=== PATIENT | male | born 1975 | race Caucasian/White ===

== ENCOUNTER 2017-09-19 12:19 | Emergency (ER) | payer OTHER ==
--- NOTE | 2017-09-19 13:34 | ER Document Report ---
ED General - General Mode of Arrival: Ambulatory Information source: Patient TRAVEL OUTSIDE OF THE [place] IN LAST 30 DAYS: No <ELIO COLON - Last Filed: 09/19/17 20:40> <BRETT OSULLIVAN - Last Filed: 09/20/17 23:10> - General Chief Complaint: Psych Problem Stated Complaint: DRUG CONCERN Time Seen by Provider: 09/19/17 13:01 Notes: Patient is a 42 year old male presenting to the emergency department complaining of visual and auditory hallucinations onset yesterday. Patient states he was at a bus stop when he took a cigarette from a stranger. Patient states when he got home he started to have visual and auditory hallucinations of pictures on the wall moving and talking as well as demons appearing. Patient also complains of a sore throat and some lower extremity pain. Patient denies vomiting, dysuria or hematuria, chest pain, SI, abdominal pain or rashes. (ELIO COLON) - Related Data Allergies/Adverse Reactions: No Known Allergies Allergy (Verified 09/19/17 12:23) Past Medical History - General Information source: Patient - Social History Smoking Status: Current Some Day Smoker Chew tobacco use (# tins/day): No Frequency of alcohol use: Social Drug Abuse: None Family History: Reviewed & Not Pertinent Patient has suicidal ideation: No Patient has homicidal ideation: No - Past Medical History Cardiac Medical History: Reports: Hx Atrial Fibrillation, Hx Hypertension Renal/ Medical History: Reports: Hx Peritoneal Dialysis <ELIO COLON - Last Filed: 09/19/17 20:40> Review of Systems - Review of Systems Constitutional: No symptoms reported EENT: No symptoms reported Cardiovascular: No symptoms reported Respiratory: No symptoms reported Gastrointestinal: No symptoms reported Genitourinary: No symptoms reported Male Genitourinary: No symptoms reported Musculoskeletal: See HPI Skin: No symptoms reported Hematologic/Lymphatic: No symptoms reported Neurological/Psychological: See HPI, Hallucinations -: Yes All other systems reviewed and negative <ELIO COLON - Last Filed: 09/19/17 20:40> Physical Exam <ELIO COLON - Last Filed: 09/19/17 20:40> <BRETT OSULLIVAN - Last Filed: 09/20/17 23:10> - Vital signs Vitals: Temp Pulse Resp BP Pulse Ox 99.0 F 93 18 126/80 H 96 09/19/17 12:25 09/19/17 12:25 09/19/17 12:25 09/19/17 12:25 09/19/17 12:25 - Notes Notes: GENERAL: Alert, interacts well. No acute distress. HEAD: Normocephalic, atraumatic. EYES: Pupils equal, round, and reactive to light. Extraocular movements intact. ENT: Oral mucosa moist, tongue midline. NECK: Full range of motion. Supple. Trachea midline. LUNGS: Clear to auscultation bilaterally, no wheezes, rales, or rhonchi. No respiratory distress. HEART: Regular rate and rhythm. No murmurs, gallops, or rubs. EXTREMITIES: Moves all 4 extremities spontaneously. NEUROLOGICAL: Alert and oriented x3. Normal speech. PSYCH: Normal affect, normal mood. SKIN: Warm, dry, normal turgor. No rashes or lesions noted. (ELIO COLON) Course - Laboratory Result Diagrams: 09/19/17 13:49 09/19/17 13:49 <ELIO COLON - Last Filed: 09/19/17 20:40> - Laboratory Result Diagrams: 09/19/17 13:49 09/19/17 13:49 <BRETT OSULLIVAN - Last Filed: 09/20/17 23:10> - Re-evaluation Re-evalutation: 09/19/17 14:55 All labs within normal limits are nonsignificant other than mildly elevated creatinine kinase. Advised patient to drink at least 4-6 glasses of water a day for the next several days. Discussed that synthetic drugs do not show up on drug testing but it appears that he likely ingested a hallucinogen. Return precautions provided. (BRETT OSULLIVAN) - Vital Signs Vital signs: Temp Pulse Resp BP Pulse Ox 97.9 F 86 18 135/82 H 96 09/19/17 15:08 09/19/17 15:08 09/19/17 15:08 09/19/17 15:08 09/19/17 15:08 - Laboratory Laboratory results interpreted by ar: 09/19/17 09/19/17 13:49 13:49 RDW 15.7 H Creatine Kinase 786 H Salicylates < 1.0 L Acetaminophen < 10 L Discharge <ELIO COLON - Last Filed: 09/19/17 20:40> <BRETT OSULLIVAN - Last Filed: 09/20/17 23:10> - Discharge Clinical Impression: Well adult health check Condition: Good Disposition: HOME, SELF-CARE Additional Instructions: If you begin to experience dark-colored urine or difficulty urinating or any other concerns please seek medical assistance Scribe Attestation: 09/20/17 23:10 I personally performed the services described documentation, reviewed and edited the documentation which was dictated to describe my presence, and it accurately records my words and actions. (BRETT OSULLIVAN) Scribe Documentation - Scribe Written by Scribe:: Lukas Rios, 09/19/2017 13:43 acting as scribe for :: Salas <ELIO COLON - Last Filed: 09/19/17 20:40>
[2017-09-19 14:23] LABS: ABSOLUTE EOSINOPHILS # (AUTO) 0.2 10^3/uL (0.0-0.6); ABSOLUTE LYMPHOCYTES (AUTO) 1.8 10^3/uL (0.5-4.7); ABSOLUTE MONOCYTES (AUTO) 0.7 10^3/uL (0.1-1.4); ABSOLUTE NEUT (AUTO) 3.3 10^3/uL (1.7-8.2); BASOPHILS % (AUTO) 0.3 % (0-2); EOSINOPHILS % (AUTO) 2.9 % (0-6); HEMATOCRIT 40.5 % (37.9-51.0); HEMOGLOBIN 13.7 g/dL (13.5-17.0); MEAN CORPUSCULAR HEMOGLOBIN 30.6 pg (27.0-33.4); MEAN CORPUSCULAR HGB CONC 33.8 g/dL (32.0-36.0); MEAN CORPUSCULAR VOLUME 91 fl (80-97); MONOCYTES % (AUTO) 11.2 % (3-13); PLATELET COUNT 192 10^3/uL (150-450); RED BLOOD COUNT 4.48 10^6/uL (4.35-5.55); RED CELL DISTRIBUTION WIDTH 15.7 % (11.5-14.0); SEGMENTED NEUTROPHILS % (AUTO) 55.6 % (42-78); TOTAL CELLS COUNTED % (AUTO) 100 %; WHITE BLOOD COUNT 5.9 10^3/uL (4.0-10.5)
[2017-09-19 14:30] LABS: URINE AMPHETAMINES SCREEN NEGATIVE; URINE BARBITURATES SCREEN NEGATIVE; URINE BENZODIAZEPINES SCREEN NEGATIVE; URINE COCAINE SCREEN NEGATIVE; URINE MARIJUANA (THC) SCREEN NEGATIVE; URINE METHADONE SCREEN NEGATIVE; URINE PHENCYCLIDINE SCREEN NEGATIVE
[2017-09-19 14:33] LABS: ACETAMINOPHEN < 10 ug/mL (10-30); ALANINE AMINOTRANSFERASE 48 U/L (21-72); ALBUMIN 4.2 g/dL (3.5-5.0); ALCOHOL < 10 mg/dL (NONE DETECTED); ALKALINE PHOSPHATASE 58 U/L (38-126); ANION GAP 9 (5-19); ASPARTATE AMINO TRANSFERASE 58 U/L (17-59); BILIRUBIN,DIRECT 0.2 mg/dL (0.0-0.4); BILIRUBIN,TOTAL 0.8 mg/dL (0.2-1.3); BLOOD UREA NITROGEN 19 mg/dL (7-20); CARBON DIOXIDE 26 mmol/L (22-30); CHLORIDE 102 mmol/L (98-107); CREATINE KINASE 786 U/L (55-170); GLUCOSE 109 mg/dL (75-110); POTASSIUM 3.9 mmol/L (3.6-5.0); SALICYLATE < 1.0 mg/dL (2.0-20.0); SODIUM 137.3 mmol/L (137-145); TOTAL PROTEIN 6.9 g/dL (6.3-8.2)
[2017-09-19 15:14] VITALS: BP 135/82
--- NOTE | 2017-09-19 18:58 | EKG REPORT ---
SEVERITY:- NORMAL ECG - SINUS RHYTHM : Confirmed by: Matthew Ibarra MD 19-Sep-2017 18:58:23
== END 2017-09-19 15:10 | disposition home or self-care (01) ==
LOC: ER 12:19
DX: Z71.1 Person with feared health complaint in whom no diagnosis is made (principal); R44.0 Auditory hallucinations; R44.1 Visual hallucinations; J02.9 Acute pharyngitis, unspecified; M79.604 Pain in right leg; M79.605 Pain in left leg; F17.200 Nicotine dependence, unspecified, uncomplicated
CPT/HCPCS: 36415; 80053; 80307; 82550; 83735; 85025; 93005; 93010; 99285

== ENCOUNTER 2017-09-19 18:50 | Emergency (ER) | payer OTHER ==
[2017-09-19] MEDS ORDERED: HALOPERIDOL 5 MG TABLET PO ONE (20:28)
--- NOTE | 2017-09-19 20:54 | ER Document Report ---
ED General - General Chief Complaint: Psych Problem Stated Complaint: HEART RACING, HALLUCINATING Time Seen by Provider: 09/19/17 20:27 Notes: Patient is a 42-year-old male who presents with concerns of ongoing visual hallucinations as well as palpitations. Patient was seen this emergency department several hours ago for the same after apparently smoking a cigarette contaminated with a hallucinogenic. Patient reports that his symptoms had mostly resolved at time of discharge but then recurred which prompted him to come back to the emergency department. He denies any history of similar symptoms in the past but notes a strong history of anxiety. He has not tried any to improve his symptoms and nothing worsens his symptoms. He denies any chest pain, shortness of breath, vomiting, diarrhea, headache, neck pain or confusion. TRAVEL OUTSIDE OF THE [place] IN LAST 30 DAYS: No - Related Data Allergies/Adverse Reactions: No Known Allergies Allergy (Verified 09/19/17 12:23) Past Medical History - General Information source: Patient - Social History Smoking Status: Current Every Day Smoker Frequency of alcohol use: None Drug Abuse: None Lives with: Family Family History: Reviewed & Not Pertinent - Past Medical History Cardiac Medical History: Reports: Hx Atrial Fibrillation, Hx Hypertension Renal/ Medical History: Reports: Hx Peritoneal Dialysis Review of Systems - Review of Systems Notes: Constitutional: Negative for fever. HENT: Negative for sore throat. Eyes: Negative for visual changes. Cardiovascular: Negative for chest pain. Respiratory: Negative for shortness of breath. Gastrointestinal: Negative for abdominal pain, vomiting or diarrhea. Genitourinary: Negative for dysuria. Musculoskeletal: Negative for back pain. Skin: Negative for rash. Neurological: Negative for headaches, weakness or numbness. 10 point ROS negative except as marked above and in HPI. Physical Exam - Vital signs Vitals: Temp Pulse Resp BP Pulse Ox 98.6 F 96 20 146/94 H 95 09/19/17 18:55 09/19/17 18:55 09/19/17 18:55 09/19/17 18:55 09/19/17 18:55 Interpretation: Hypertensive Notes: PHYSICAL EXAMINATION: GENERAL: Well-appearing, well-nourished and in no acute distress. HEAD: Atraumatic, normocephalic. EYES: Pupils equal round and reactive to light, extraocular movements intact, sclera anicteric, conjunctiva are normal. ENT: nares patent, oropharynx clear without exudates. Moist mucous membranes. NECK: Normal range of motion, supple without lymphadenopathy LUNGS: Breath sounds clear to auscultation bilaterally and equal. No wheezes rales or rhonchi. HEART: Regular rate and rhythm without murmurs ABDOMEN: Soft, nontender, normoactive bowel sounds. No guarding, no rebound. No masses appreciated. EXTREMITIES: Normal range of motion, no pitting or edema. No cyanosis. NEUROLOGICAL: No focal neurological deficits. Moves all extremities spontaneously and on command. PSYCH: Normal mood, normal affect. SKIN: Warm, Dry, normal turgor, no rashes or lesions noted. Course - Re-evaluation Re-evalutation: 09/19/17 20:52 Patient has returned today with concerns of intermittent ongoing hallucinations although he does not appear to be responding to any internal stimuli at this time. He denies any active hallucinations at this time. Review of labs from prior visit shows mild CK elevation but not clinically elevated to the point of rhabdomyolysis. On physical examination patient is otherwise well in appearance , vitals within normal limits, no focal neurologic deficits, otherwise reassuring exam. No indication for repeat labs or imaging at this time. I have given a dose of oral haloperidol 5 mg here to help control some of patient' s symptoms and allow him to rest tonight. I have instructed him to return to the emergency department if he is having ongoing hallucinations when he wakes up in the morning. At this time will discharge with return precautions and follow-up recommendations. Verbal discharge instructions given a the bedside and opportunity for questions given. Medication warnings reviewed. Patient is in agreement with this plan and has verbalized understanding of return precautions and the need for primary care follow-up in the next 24-72 hours. - Vital Signs Vital signs: Temp Pulse Resp BP Pulse Ox 97.8 F 86 16 132/73 H 97 09/19/17 21:06 09/19/17 21:06 09/19/17 21:06 09/19/17 21:06 09/19/17 21:06 Discharge - Discharge Clinical Impression: Visual hallucinations, Dehydration Condition: Good Disposition: HOME, SELF-CARE Additional Instructions: Please return if you continue to have hallucinations for greater than 24 hours. Please also return if you develop fever, headache, neck pain, pass out, have persistent vomiting, or have any other symptoms that are worrisome to you.
[2017-09-19 21:10] VITALS: BP 132/73
== END 2017-09-19 21:09 | disposition home or self-care (01) ==
LOC: ER 18:50
DX: R44.1 Visual hallucinations (principal); R00.2 Palpitations; I48.91 Unspecified atrial fibrillation; I10 Essential (primary) hypertension; F17.210 Nicotine dependence, cigarettes, uncomplicated
CPT/HCPCS: 99283

== ENCOUNTER 2017-09-20 00:12 | Emergency (ER) | payer OTHER ==
--- NOTE | 2017-09-20 02:08 | ER Document Report ---
HPI - HPI Patient complains to provider of: Hallucinations Pain Level: Denies Context: Patient is a 42-year-old male who is been evaluated twice in the emergency department for the same complaint. Patient allegedly ingested a synthetic hallucinogen less than 48 hours ago. He does admit to a history of insomnia and anxiety which is been keeping him up since his ingestion. He states that his visual hallucinations of decreased but are still present. He was told to return to the emergency department after trying to sleep it off after receiving Haldol tonight. Patient states that he went home felt like he could not sleep and wanted to come back to the ER. Once he arrived in the emergency department he denies any hallucinations and he was able to sleep in a packer bed prior to my introduction. Patient follows with the [facility] for primary care. He does not follow with any specialist for mental health. States that he is on Vistaril but he does not take it because he feels like it does not work, he also states that he has had Ativan in the past which he states does not work as well as Xanax. He continues to deny any suicidal ideations, homicidal ideations, suicidal plan. Denies any previous history of suicide attempt, overdose. Denies any chest pain, shortness of breath, palpitations, headache, neck pain, fever, chills, lethargy, dizziness Past Medical History - Social History Smoking Status: Current Every Day Smoker Family History: Reviewed & Not Pertinent - Past Medical History Cardiac Medical History: Reports: Hx Atrial Fibrillation, Hx Hypertension Renal/ Medical History: Denies: Hx Peritoneal Dialysis Vertical Provider Document - CONSTITUTIONAL Agree With Documented VS: Yes Notes: PHYSICAL EXAM GENERAL: Alert, interacts well. HEAD: Normocephalic, atraumatic. EYES: Pupils equal, round, and reactive to light. Extraocular movements intact. ENT: Oral mucosa moist, tongue midline. NECK: Full range of motion. Supple. Trachea midline. LUNGS: Clear to auscultation bilaterally, no wheezes, rales, or rhonchi. No respiratory distress. HEART: Regular rate and rhythm. No murmurs, gallops, or rubs. ABDOMEN: Soft, nondistended, nontender. No guarding, rebound, or rigidity.. Bowel sounds present in all 4 quadrants. EXTREMITIES: Moves all 4 extremities spontaneously. No edema, radial and dorsalis pedis pulses 2/4 bilaterally. No cyanosis. NEUROLOGICAL: Alert and oriented x4. Normal speech. PSYCH: Normal affect, normal mood. SKIN: Warm, dry, normal turgor. No rashes or lesions noted. - INFECTION CONTROL TRAVEL OUTSIDE OF THE [place] IN LAST 30 DAYS: No - RESPIRATORY O2 Sat by Pulse Oximetry: 97 Course - Re-evaluation Re-evalutation: 09/20/17 02:08 Patient is a 42-year-old male who is hemodynamically stable, no acute distress and afebrile. Patient is return to the emergency department for third visit due to anxiety from insomnia and ongoing hallucinations. Patient is very cooperative and reasonable during history and exam. He denies any ill active hallucinations at this time. Previous labs did show elevated CK without any evidence of rhabdomyolysis. Patient states that he has been able to urinate since his discharge denies any color change. There is no focal neurological deficits on physical exam. He states that he feels reassured when in the ER. After discussing with him that his insomnia does not help with his recent hallucinogen ingestion and that his underlying anxiety will also be a factor, patient states that he feels better with that explanation that this could be multifocal as opposed to just the drug ingestion. Discussed with him that given he has a significant history of anxiety that he will benefit from following up with mental health. Patient agrees and is stable for discharge home. We did discuss return precautions and reemphasized need for primary care follow-up. - Vital Signs Vital signs: Temp Pulse Resp BP Pulse Ox 97.8 F 88 21 H 134/84 H 97 09/20/17 00:21 09/20/17 00:21 09/20/17 00:21 09/20/17 00:21 09/20/17 00:21 Discharge - Discharge Clinical Impression: Visual hallucinations, Anxiety Disposition: HOME, SELF-CARE Additional Instructions: As discussed previously your presentation is consistent with congestion of the hallucinogen which is likely synthetic. Please follow-up with the resources provided. A contributing factor to persistent of these hallucinations is lack of sleep. Given that he suffers from anxiety and insomnia, please make a conscious effort to sleep. If symptoms do not improve after a sleep tonight please return to the emergency department with any persistent hallucinations Anxiety The physician feels that some of your health problems are being caused by anxiety. Anxiety affects your health in many ways. Anxiety alone can cause palpitations, sweats, chest pains, abdominal pains, shortness of breath, and headaches. It contributes to ulcer disease, high blood pressure, irritable bowel syndrome, and has been shown to cause flare-ups of many other diseases. Anxiety is not a simple disorder to treat. If the anxiety is due to recent life stresses, you may simply need time to "work through" the changes. If the anxiety is due to an underlying unhappiness with yourself or due to psychiatric disturbance, professional help will be needed. Your physician can refer you for further help if needed. Anti-anxiety medication is occasionally given if the stress is acute or if you are having trouble sleeping. Chronic or frequent use of these medications is not a good idea because the body becomes reliant on it, preventing you from dealing with life's normal stresses. Referrals: [facility] [Provider Group] - Follow up tomorrow
[2017-09-20] MEDS ORDERED: LORAZEPAM 1 MG TABLET PO ONE (02:11)
[2017-09-20 03:37] VITALS: BP 129/66
== END 2017-09-20 03:37 | disposition home or self-care (01) ==
LOC: ER 00:12
DX: F16.90 Hallucinogen use, unspecified, uncomplicated (principal); R44.1 Visual hallucinations; G47.00 Insomnia, unspecified; F41.9 Anxiety disorder, unspecified; F17.200 Nicotine dependence, unspecified, uncomplicated; I10 Essential (primary) hypertension
CPT/HCPCS: 99284